=== PATIENT | female | born 1995 | race Caucasian/White ===

== ENCOUNTER 2018-02-22 03:26 | Emergency (ER) | payer SELFPAY ==
[2018-02-22 04:29] LABS: ADD MAN DIFF? NO
[2018-02-22 04:35] LABS: WHITE BLOOD COUNT 9.2 10^3/ul (4.8-10.8)
[2018-02-22 04:35] LABS: BASOPHILS % 0.4 % (0.0-2.0); EOSINOPHILS # 0.2 10^3/ul (0.0-0.5); EOSINOPHILS % 2.3 % (0.0-7.0); HEMATOCRIT 35.5 % (37.0-47.0); HEMOGLOBIN 12.1 g/dl (12.0-16.0); MEAN CORPUSCULAR HEMOGLOBIN 29.8 pg (29.0-33.0); MEAN CORPUSCULAR HGB CONC 34.1 g/dl (32.0-37.0); MEAN CORPUSCULAR VOLUME 87.4 fl (82.0-101.0); MONOCYTE # 0.5 10^3/ul (0.3-0.9); MONOCYTES % 5.1 % (0.0-11.0); NEUTROPHIL # 6.4 10^3/ul (1.6-7.5); NEUTROPHILS % 69.9 % (39.0-77.0); PLATELET COUNT 229 10^3/UL (140-415); RED BLOOD COUNT 4.06 10^6/ul (4.20-5.40); RED CELL DISTRIBUTION WIDTH 12.3 % (11.5-14.5)
[2018-02-22 05:55] LABS: UR CLARITY TURBID (CLEAR); UR COLOR RED (YELLOW); URINE SPECIFIC GRAVITY (Dip) >=1.030 (1.003-1.030)
[2018-02-22 05:56] LABS: UR GLUCOSE (Dip) 3+ mg/dL (NEGATIVE); UR TOTAL PROTEIN (Dip) 3+ mg/dl (NEGATIVE); URINE PH (Dip) >9.0 (5.0-9.0)
[2018-02-22 05:57] LABS: UR BLOOD (Dip) 3+ mg/dL (NEGATIVE); UR KETONES (Dip) 4+ mg/dL (NEGATIVE); UR NITRITE (Dip) POSITIVE (NEGATIVE)
[2018-02-22 05:58] LABS: ADD UMIC YES; UR LEUKOCYTE ESTERASE (Dip) 3+ Leu/ul (NEGATIVE)
[2018-02-22 06:08] LABS: UR BACTERIA FEW /HPF (NONE SEEN); UR RBC > 182 /HPF (0-5); UR WBC > 182 /HPF (0-5)
== END 2018-02-22 06:44 | disposition home or self-care (01) ==
LOC: FTE 03:26
DX: O03.9 Complete or unspecified spontaneous abortion without complication (principal); O23.11 Infections of bladder in pregnancy, first trimester; R10.2 Pelvic and perineal pain
CPT/HCPCS: 36415; 76801; 76817; 81001; 84702; 85025; 86900; 86901; 99284-25